=== PATIENT | female | born 1980 | race Caucasian/White ===

== ENCOUNTER 2017-01-10 21:06 | Emergency (ER) | payer BC ==
[~2017-01-10] VITALS: Ht 160 cm; Wt 113.4 kg
[2017-01-10] MEDS ORDERED: CYCLOBENZAPRINE10 MG PO (21:17)
[2017-01-10] MEDS ORDERED: BACTRIM DS TAB1 EACH PO (21:17)
[2017-01-10] MEDS ORDERED: ZOFRAN ODT4 MG PO (22:45)
[2017-01-10] MEDS ORDERED: NORCO 5-325 TA1 EACH PO (22:45)
== END 2017-01-10 23:00 | disposition home or self-care (01) ==
LOC: ED 21:06
DX: N23 Unspecified renal colic (principal); F17.200 Nicotine dependence, unspecified, uncomplicated; Z90.710 Acquired absence of both cervix and uterus; Z79.899 Other long term (current) drug therapy
CPT/HCPCS: 74176; 80053; 81001; 83690; 85025; 96361; 96374; 96375; 99284; J1170; J1885; J2405; J7030